=== PATIENT | female | born 1960 | race African-American/Black ===

== ENCOUNTER 2024-03-30 01:58 | Emergency (ER) | payer OTHER ==
[2024-03-30 02:18] VITALS: BP 163/94; PULSE 62; RESP 18; TEMP 98.6; BMI 28.1
[2024-03-30] MEDS ORDERED: LIDOCAINE 4% PATCH TP ONE (03:28)
[2024-03-30] MEDS: LIDOCAINE 5% TOPICAL PATCH TP ONE (03:29)
[2024-03-30] MEDS ORDERED: LIDOCAINE PATCH REMOVAL MC SCH (22:00)
== END 2024-03-30 03:44 | disposition home or self-care (01) ==
LOC: JER 01:58
DX: M25.511 Pain in right shoulder (principal); M79.601 Pain in right arm
CPT/HCPCS: 99283-25